=== PATIENT | female | born 1945 | race Hispanic/Latino ===

== ENCOUNTER 2019-02-03 05:41 | Day surgery (SDC) | payer OTHER ==
[2019-01-28 11:32] LABS: CREATININE 0.6 mg/dL (0.5-1.5); POTASSIUM 4.5 mmol/L (3.5-5.1)
[2019-01-28 11:37] LABS: BASOPHILS % (AUTO) 1.3 % (0.0-5.0); EOSINOPHILS % (AUTO) 3.1 % (0.0-8.0); HEMATOCRIT 40.1 % (36-48); LYMPHOCYTES % (AUTO) 21.3 % (21.0-51.0); MEAN CORPUSCULAR HEMOGLOBIN 26.3 pg (27.0-33.0); MEAN CORPUSCULAR VOLUME 79.6 fL (79-99); MONOCYTES % (AUTO) 5.3 % (3.0-13.0); NUCLEATED RED BLOOD CELLS 0.1 % (0.0-0.19); PLATELET COUNT (AUTO) 217 K/uL (130-400); RED BLOOD CELL COUNT(AUTO) 5.04 MIL/uL (4.00-5.50); RED CELL DISTRIBUTION WIDTH 15.3 % (11.0-15.5); WHITE BLOOD COUNT (AUTO) 8.5 K/uL (4.8-10.8)
[2019-01-28 11:50] VITALS: BP 144/63
[~2019-02-03] VITALS: Ht 157.5 cm; Wt 73.7 kg
[2019-02-03] VITALS (12 sets, daily range): BP systolic 119–148; BP diastolic 40–78
[~2019-02-03 05:41] MED LIST: ATOR10 PO; CEFAZOLIN SODIUM 1 GM VIAL IVP SCH; ERGO500014 PO; FA/M1TAB32 PO; LACTATED RINGERS 1000ML 1,000 ML IV SCH; LEVO25TA54 PO; METF-445 PO; METO-408 PO; NAPR220C15 PO; PANT40TA25 PO
[2019-02-03] MEDS ORDERED: SODIUM CHLORIDE 0.9% 1000ML 1,000 ML IV ONE (06:20)
--- NOTE | 2019-02-03 06:21 | NUR ---
POTENTIAL FOR INFECTION: NO SHAVING NEEDED TO RIGHT HAND, WIPED RIGHT HAND WITH LORETTA: 2% CHLORHEXIDINE GLUCONATE CLOTH PATIENTS PRE-OP SKIN PREP PER TOMMY WHITE MA.
[2019-02-03] MEDS: CEFAZOLIN SODIUM 1 GM VIAL ONE ×2 (06:22→07:56)
[2019-02-03] MEDS ORDERED: LIDOCAINE HCL 2% 20ML ONE (07:33)
[2019-02-03] MEDS ORDERED: MIDAZOLAM HCL 1 MG/ML 2ML VIAL ONE (07:39)
[2019-02-03] MEDS ORDERED: LIDOCAINE PF 2% 5ML ABBOJECT ONE (07:39)
[2019-02-03] MEDS ORDERED: PROPOFOL 10 MG/ML 20ML VIAL IV ONE ×2 (07:40→07:41)
== END 2019-02-03 09:25 | disposition home or self-care (01) ==
LOC: DAH 05:41
PROVIDERS: ATTEND Orthopaedic Surgery
DX: M65.341 Trigger finger, right ring finger (principal); E78.5 Hyperlipidemia, unspecified; E11.9 Type 2 diabetes mellitus without complications; E03.9 Hypothyroidism, unspecified; K21.9 Gastro-esophageal reflux disease without esophagitis; Z79.899 Other long term (current) drug therapy; Z96.651 Presence of right artificial knee joint
CPT/HCPCS: 26055; 36415; 80048; 82948 ×2; 85025; 93005; A4649; A4930; A6223; J0690; J2001; J2250; J2704; J3490; J7030; J7120

== ENCOUNTER → 2023-07-28 | Outpatient (CLI) | payer OTHER ==
[~2023-07-28] MED LIST changes: -CEFAZOLIN SODIUM 1 GM VIAL IVP SCH; -LACTATED RINGERS 1000ML 1,000 ML IV SCH; +NITR100C4 PO; -PANT40TA25 PO; +PANT40TA54 PO
== END | disposition home or self-care (01) ==
LOC: RAH 13:14
PROVIDERS: ATTEND Internal Medicine
DX: M85.88 Other specified disorders of bone density and structure, other site (principal); Z78.0 Asymptomatic menopausal state
CPT/HCPCS: 77080